=== PATIENT | female | born 1960 | race Caucasian/White ===

== ENCOUNTER 2023-10-12 13:59 | Outpatient (CLI) | payer BC | END 2023-10-12 14:00 | disposition home or self-care (01) | LOC: CSHMAMMO 13:59 | PROVIDERS: ATTEND Physician Assistant | DX: Z12.31 Encounter for screening mammogram for malignant neoplasm of breast (principal); Z80.3 Family history of malignant neoplasm of breast | CPT/HCPCS: 77063; 77067 ==